=== PATIENT | male | born 1980 | race Caucasian/White ===

== ENCOUNTER 2019-12-23 16:55 | Emergency (ER) | payer OTHER ==
[~2019-12-23] VITALS: Ht 180.3 cm; Wt 102.1 kg
[2019-12-23 17:13] VITALS: BP 180/113
--- NOTE | 2019-12-23 17:26 | NUR ---
X RAY AT BEDSIDE.
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
--- NOTE | 2019-12-23 18:26 | NUR ---
APPLIED SHORT LEG AND SUGAR TONGUE SPLINT TO RIGHT FOOT WITHOUT ANY ISSUES.
[2019-12-23] MEDS ORDERED: BACITRACIN OINT 500 UNITS/GM PKT TP ONE (18:45)
[2019-12-23] MEDS ORDERED: HYDROcodone/APAP 5/325 MG 1 TAB TAB PO ONE (18:45)
[2019-12-23] MEDS ORDERED: KETOROLAC 30 MG/ML VIAL IM ONE (18:45)
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
[2019-12-23 20:24] VITALS: BP 160/103
--- NOTE | 2019-12-23 20:24 | NUR ---
Patient discharged with v/s stable. Written and verbal after care instructions about ankle fracture given and explained. Patient alert, oriented and verbalized understanding of instructions. Wheel Chair Assisted with to car. All questions addressed prior to discharge. ID band removed. Patient advised to follow up with PMD. Rx of norco and motrin given. Patient educated on indication of medication including possible reaction and side effects. Opportunity to ask questions provided and answered. Patient states understanding to not operate heavy machinery or drive when taking norco.
== END 2019-12-23 20:24 | disposition home or self-care (01) ==
LOC: MED 16:55
DX: S82.51XA Displaced fracture of medial malleolus of right tibia, initial encounter for closed fracture (principal); V29.9XXA Motorcycle rider (driver) (passenger) injured in unspecified traffic accident, initial encounter; Y93.89 Activity, other specified; Y92.89 Other specified places as the place of occurrence of the external cause; Y99.8 Other external cause status; S20.312A Abrasion of left front wall of thorax, initial encounter; S20.311A Abrasion of right front wall of thorax, initial encounter
CPT/HCPCS: 29515; 71045; 73610; 90471; 90715; 96372; 99284; J1885